=== PATIENT | male | born 1975 | race Caucasian/White ===

== ENCOUNTER 2017-12-10 16:16 | Emergency (ER) | payer SELFPAY ==
[2017-12-10] MEDS: IBUPROFEN 600 MG TAB PO (19:28)
[2017-12-10] MEDS: ACETAMINOPHEN 325 MG TAB PO (19:29)
== END 2017-12-10 20:30 | disposition home or self-care (01) ==
LOC: FTE 20:30
DX: R05 Cough (principal)
CPT/HCPCS: 71045; 87400; 99284-25